=== PATIENT | male | born 1970 | race Caucasian/White ===

== ENCOUNTER 2021-03-19 15:51 | Emergency (ER) | payer MEDICARE, OTHER, SELFPAY ==
[2021-03-19 16:16] VITALS: BP 190/116; PULSE 102; RESP 19; TEMP 37; O2SAT 98; BMI 28.7
--- NOTE | 2021-03-19 16:20 | PC.NURSE ---
Report given by Tin Shukla RN. stating pt is needing refills on his bp meds before he is able to get into a new doctor.
--- NOTE | 2021-03-19 16:29 | HMH.EDUTC ---
[facility] [place] Clinical Impression: Medication refill Hypertension Qualifiers: Hypertension type: unspecified Qualified Code(s): I10 - Essential (primary) hypertension Disposition: Home, Self-Care Condition on Discharge: Good Instructions: Treatments for High Blood Pressure: More Than Just Taking a Pill, Hypertension (Alternative Therapy), Metoprolol, Losartan Additional Instructions: Take you medication as prescribed Make sure to find a Family Doctor to watch and monitor your blood pressure and keep your medication filled and up todate Return if needed straight to ER if any life threatening symptoms Prescriptions: Metoprolol Succinate [Metoprolol Succinate 100mg Tablet*] 100 mg PO DAILY 30 Days #30 tab Transmission Status: Received by Clinic Pharm[facility] Referrals: Provider,Referral, [Primary Care Provider] - As needed Time of Disposition: 17:24 Medical Decision Making - Bassem Inquiry Pt receiving controlled substance: No Bassem was queried for this patient: No Vital Signs: 03/19/21 16:16 03/19/21 17:20 Temperature 98.6 F 98.6 F Temperature Source Oral Pulse Rate 88 Pulse Rate [Left] 102 H Respiratory Rate 19 9 L Blood Pressure 172/114 H Blood Pressure [Right Arm] 190/116 H Blood Pressure Mean [Right Arm] 140 02 Sat by Pulse Oximetry 98 Orders (Tests/Meds): ED MEDICATIONS Discontinued Medications Generic Name Dose Route Start Last Admin Trade Name Racheal PRN Reason Stop Dose Admin Metoprolol Succinate 100 mg 03/19/21 16:48 03/19/21 17:11 Metoprolol Succinate Xl 100mg Tablet PO 03/19/21 16:49 100 mg ONCE ONE Administration Medical Decision Narrative: Called pharmacy that patient uses to fill his medication they advised that they had a prescription on hold for him for 3mths of his losartan but he is out of refills on his Metoprolol discussed with Pharmacy and they provided last medications filled and doses, spoke with patient and he advised he had no way to get there Pharmacy advised that they would transfer the prescription to clinic pharmacy so he can pick it up here and patient agreed will give him dose in [facility] and send in medication to clinic pharmacy Patient states that he is feeling much better and wanting to leave to go get his medication from clinic that was transferred from Medicine stop blood pressure starting to decrease [facility] [place] - General Stated complaint: BP HIGH,DIZZY Time Seen by Provider: 03/19/21 16:29 Mode of Arrival: Ambulatory Source of Information: Patient Limitations: No Limitations Description of Symptoms (Recalled from Triage Doc. by RN): pt ran out of his blood pressure medicine and is imbetween doctors. pt is unsure of the dosages. will call pharmacy. HEENT Symptoms (Recalled from RN notes): No Resp Symptoms (Recalled from RN notes): No Skin Symptoms (Recalled from RN notes): No MS Symptoms (Recalled from RN notes): No Functional Status (Recalled from RN notes): na - History of Present Illness Provider Complaint: Patient states that he moved here recently and hasnt found a PCP states that he ran out of his blood pressure medications a few weeks ago and has been without them States that he can tell that his blood pressure is up because he has headaches and at times feels like his vision gets blurry on and off States that he came in today to see if he could get a refill on his medication to help him get through until he can find a family doctor - Related Data Previous Rx's Medication Instructions Recorded Metoprolol Succinate [Metoprolol 100 mg PO DAILY 30 Days #30 tab 03/19/21 Succinate 100mg Tablet*] Allergies Allergy/AdvReac Type Severity Reaction Status Date / Time Pseudoephedrine Allergy Unknown I-HIVES Uncoded 06/09/17 15:14 - Worker's Comp Is this a Worker's Comp case?: No [facility] History - Hepatitis A Screen Drug use history?: No High risk sexual behaviors?: No History of sexually transmitted infection?: No Keily
[2021-03-19 17:20] VITALS: BP 172/114; PULSE 88; RESP 9; TEMP 37
== END 2021-03-19 17:40 | disposition home or self-care (01) ==
PROVIDERS: Emergency Provider Nurse Practitioner
DX: R42 Dizziness and giddiness (principal); I10 Essential (primary) hypertension
CPT/HCPCS: G0463; 99202

== ENCOUNTER 2021-06-25 17:28 | Emergency (ER) | payer MEDICARE, OTHER, SELFPAY ==
--- NOTE | 2021-06-25 17:28 | ECG_ITS ---
APPROVED REPORT Exam: Resting ECG HR:63 bpm ECG Measurements Heart Rate 63 AXES WI 152 P 26 QRSd 82 QRS 58 QT 392 T 57 QTc 401 Conclusion Normal sinus rhythm ST elevation, probably due to early repolarization Borderline ECG Electronically signed by : Asif Sanon MD 06/28/2021 14:35:29
[2021-06-25 17:29] VITALS: BP 167/108; PULSE 61; RESP 18; TEMP 36.8; O2SAT 96; BMI 34.8
--- NOTE | 2021-06-25 17:35 | PC.NURSE ---
pt states he is not wanting blood work drawn, states he was only wanting his ekg checked, states if that is okay he wants to go home. Educated pt on blood tests that would be ordered for a chest pain work up, pt verbalized understanding. Notified CORTNEY ULLOA
--- NOTE | 2021-06-25 17:40 | PC.NURSE ---
ER states he has spoken with pt on importance of further work up for his c/o chest heaviness and pt is refusing blood work and chest xray.
--- NOTE | 2021-06-25 17:45 | HMH.EDCP ---
ED Disposition Clinical Impression: Nonspecific chest pain Disposition: Left Against Medical Advice Condition on Discharge: Fair Instructions: DI for Chest Pain - Critical Care Critical Care Time: No Attestation: On , the high probability of a clinically significant, sudden or life threatening deterioration of the following system(s) required my full and direct attention, intervention and personal management. The time I documented below is in addition to time spent performing reported procedures but includes the following listed in this critical care notation. Medical Decision Making - Medical Records Medical records reviewed: Yes: I reviewed the patient's medical records. - Bassem Inquiry Pt receiving controlled substance: No Orders (Tests/Meds): ORDERS Category Date Time Status XR chest portable Stat Exams 06/25/21 17:38 Ordered Brain Natriuretic Peptide Stat Lab 06/25/21 17:38 Ordered Complete Blood Count Auto Diff Stat Lab 06/25/21 17:38 Ordered Comprehensive Metabolic Panel Stat Lab 06/25/21 17:38 Ordered Trop I [Troponin I] Stat Lab 06/25/21 17:38 Ordered Troponin I Q3H Lab 06/25/21 20:45 Ordered Troponin I Q3H Lab 06/25/21 23:45 Ordered - ECG Data Tracing #1 I reviewed this ECG and interpreted as documented below: Normal jugular rate 60 beats minute, HI interval 152, normal QTC. Sinus rhythm with nonspecific changes ECG initial impression date: 06/25/21 ECG initial impression time: 17:28 Medical Decision Narrative: 51-year-old male presented to the emergency department with some chest discomfort for the last 2 weeks. Sounds chronic in nature. Not typical for ACS. Patient is relatively low risk based on heart score. Patient's EKG was unremarkable. At this time, the patient states that he does not want to receive any blood work or further treatment. He just wanted an EKG done and his vitals done. I did explain to the patient that we need to complete a full work-up in order to fully assess his current condition. Patient again is declining any further work-up. He wants to leave AGAINST MEDICAL ADVICE. Patient states that he will return if there is any change in symptoms. I did urge him to come back at earliest convenience and follow-up with his PCP in 24 hours. Patient is alert and appropriate. Full decision-making ability. Verbalized understanding. Chest Pain HPI - General Chief Complaint: Chest Pain Stated Complaint: cp Time Seen by Provider: 06/25/21 17:45 Source of Information: Patient Limitations: No Limitations - History of Present Illness HPI narrative: Is a 51-year-old male presents to the emergency department with some right-sided chest pain. Patient states that he has had this for the last 2 weeks. Is been consistent in nature. States is a dull nagging pain. Got concerned because his father from a heart attack when he was in his 60s. Patient denies any trauma to the area. Is not associated with any eating or drinking. He is not having any shortness of breath, cough hemoptysis denies any headache or change in vision. No fluctuance. No abdominal pain or vomiting. No diarrhea. - Related Data Previous Rx's Medication Instructions Recorded Metoprolol Succinate [Metoprolol 100 mg PO DAILY 30 Days #30 tab 03/19/21 Succinate 100mg Tablet*] Allergies Allergy/AdvReac Type Severity Reaction Status Date / Time Pseudoephedrine Allergy Unknown I-HIVES Uncoded 06/09/17 15:14 [facility] History - Hepatitis A Screen Attestation statement:: This patient has been screened for Hepatitis A risk factors. I have reviewed the patient's past medical history: Yes Medical History: Reports:: Hypertension ROS Obtained: Yes All systems reviewed & no additional complaints - Constitutional Constitutional: Denies chills, Denies fever(s) - Cardiovascular Cardiovascular: Reports chest pain - Respiratory Respiratory: Denies dyspnea - Gastrointestina
[2021-06-25 17:47] VITALS: BP 167/108; PULSE 61; RESP 18; TEMP 36.8; O2SAT 96
--- NOTE | 2021-06-25 17:47 | PC.NURSE ---
pt leaving AMA at this time
== END 2021-06-25 17:47 | disposition left against medical advice (07) ==
LOC: ER 17:49
PROVIDERS: Emergency Provider Emergency Medicine
DX: R07.9 Chest pain, unspecified (principal); I10 Essential (primary) hypertension
CPT/HCPCS: 93005; 99281

== ENCOUNTER 2021-08-06 08:38 | Emergency (ER) | payer MEDICARE, OTHER, SELFPAY ==
[2021-08-06 08:39] VITALS: BP 170/100; PULSE 87; RESP 16; O2SAT 98; BMI 27.8
--- NOTE | 2021-08-06 08:57 | PC.NURSE ---
Violette A contacted Zeinab Fonseca APRN regarding patient
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
--- NOTE | 2021-08-06 09:12 | PC.NURSE ---
Patient changed into gown, belongings into bags and is laying comfortably in bed at this time. Sitter at bedside.
--- NOTE | 2021-08-06 09:20 | PC.NURSE ---
Went MD went in to assess patient he expressed that he was having crazy thoughts, and was thinking of killing himself. Advised he wanted to drive his car into a tree and that he had a previous suicide attempt when he tried to silt his wrists. Pt was moved to room 5 and clothing/belongings removed and pt placed in gown. Jany at bedside within arm's reach and pt in 1:1 observation.
--- NOTE | 2021-08-06 09:26 | PC.NURSE ---
Calling [facility] at this time.
[2021-08-06 09:34] LABS: Coronavirus 19, PCR Not Detected (NotDetected); Influenza A, PCR Not Detected (NotDetected); Influenza B, PCR Not Detected (NotDetected)
--- NOTE | 2021-08-06 09:40 | PC.NURSE ---
Patient is tearful at this time
[2021-08-06 09:45] LABS: Basophils # 0.2 K/mm3 (0-0.2); Basophils % 1.4 % (0.1-2.0); Eosinophils # 1.4 K/mm3 (0.0-0.4); Eosinophils % 10.5 % (0.1-12.0); Hematocrit 47.1 % (42.0-52.0); Hemoglobin 15.2 g/dL (14.1-18.0); Lymphocytes # 5.1 K/mm3 (0.7-4.5); Mean Corpuscular HGB Conc 32.3 g/dL (31.8-35.4); Mean Corpuscular Hemoglobin 30.3 pg (27.0-31.2); Mean Corpuscular Volume 93.6 fl (80-94); Mean Platelet Volume 8.2 fl (7.4-10.4); Monocytes # 1.3 K/mm3 (0.1-1.0); Monocytes % 9.8 % (1.7-9.3); Neutrophils # 5.6 K/mm3 (1.8-7.8); Neutrophils % 41.3 % (37.0-80.0); Platelet Count 395 K/mm3 (142-424); Red Blood Count 5.03 M/mm3 (4.60-6.20); Red Cell Distribution Width 13.9 % (11.5-17.5); White Blood Count 13.6 K/mm3 (4.8-10.8)
[2021-08-06 09:47] LABS: Chloride 102 mmol/L (98-107); Sodium 136 mmol/L (136-145)
[2021-08-06 09:48] LABS: Potassium 4.3 mmoL/L (3.5-5.1)
[2021-08-06 09:49] LABS: Blood Urea Nitrogen 20 mg/dl (9-20); Creatinine Clearance Estimated 142 mL/min (50-200); Estimated Glomerular Filt Rate 102 ml/min (>60); GFR (African American) 124 ML/MIN (>60)
[2021-08-06 09:50] LABS: Alanine Aminotransferase 247 U/L (12-78); Albumin Level 3.9 g/dl (3.5-5.0); Albumin/Globulin Ratio 1.1 (1.1-1.8); Alkaline Phosphatase 83 U/L (38-126); Anion Gap 6.3 mEq/L (5-15); Aspartate Amino Transferase 164 U/L (17-59); Bilirubin,Total 0.6 mg/dl (0.2-1.3); Calcium 8.3 mg/dl (8.4-10.2); Carbon Dioxide 32 mmol/L (22.0-30.0); Globulin 3.5 g/dL (1.3-3.2); Glucose 104 mg/dl (74-100); Total Protein,Serum 7.4 g/dl (6.3-8.2)
[2021-08-06 09:55] LABS: Acetaminophen < 10 ug/ml (10-30); Ethyl Alcohol < 10 mg/dl (0-10); Salicylate < 1.0 mg/dL (2.0-20.0)
--- NOTE | 2021-08-06 10:22 | PC.NURSE ---
Patient is sleeping
--- NOTE | 2021-08-06 11:01 | PC.NURSE ---
Called [facility] and notified them that patient was covid negative. Advised she would take the information over to the stroke coordinator.
--- NOTE | 2021-08-06 11:07 | PC.NURSE ---
Patient is sleeping
--- NOTE | 2021-08-06 11:29 | PC.NURSE ---
Patient is still resting comfortably
--- NOTE | 2021-08-06 12:04 | PC.NURSE ---
Called report to [facility] and called [facility] and asked for officer in charge to call me to arrange transport
--- NOTE | 2021-08-06 12:07 | ECG_ITS ---
APPROVED REPORT Exam: Resting ECG HR:58 bpm ECG Measurements Heart Rate 58 AXES WI 135 P 8 QRSd 92 QRS 58 QT 410 T 41 QTc 406 Conclusion SINUS BRADYCARDIA BORDERLINE ECG UNCONFIRMED REPORT Electronically signed by : Asif Sanon MD 08/07/2021 21:02:19
--- NOTE | 2021-08-06 12:16 | PC.NURSE ---
Patient sitting up in chair eating lunch
[2021-08-06 12:37] VITALS: BP 163/88; PULSE 54; RESP 16; O2SAT 98
--- NOTE | 2021-08-06 13:20 | PC.NURSE ---
[facility] is here to transport patient to [facility]
[2021-08-06 13:23] VITALS: BP 160/72; PULSE 70; RESP 16; TEMP 36.8; O2SAT 98
[2021-08-07 12:13] LABS: Hep A Ab, IgM Negative (Negative); Hepatitis B Core Antibody IgM Negative (Negative); Hepatitis B Surface Antigen Negative (Negative); Hepatitis C Antibody >11.0 s/co ratio (0.0-0.9)
== END 2021-08-06 13:24 ==
PROVIDERS: Emergency Provider Emergency Medicine
DX: R45.851 Suicidal ideations (principal); F11.10 Opioid abuse, uncomplicated; F32.A Depression, unspecified; R00.1 Bradycardia, unspecified; I10 Essential (primary) hypertension; Z20.822 Contact with and (suspected) exposure to COVID-19; Z88.8 Allergy status to other drugs, medicaments and biological substances
CPT/HCPCS: 80053; 80074; 80329; 85025; 93005; 99284; 99285; C9803; U0003; U0005